=== PATIENT | male | born 1930 | race Caucasian/White ===

== ENCOUNTER 2017-01-24 09:11 | Observation (INO) | payer OTHER ==
[~2017-01-24] VITALS: Ht 182.9 cm; Wt 106.1 kg
[2017-01-24 09:44] LABS: HEMOGLOBIN 12.7 gm/dl (14.0-17.5); RED BLOOD COUNT 4.56 M/UL (4.20-5.50); WHITE BLOOD COUNT 8.2 K/UL (4.5-11.0)
[2017-01-24 10:02] LABS: BUN/CREATININE RATIO 17 (0-10)
[2017-01-24] MEDS ORDERED: VENTOLIN HFA 66.7 GM INH (20:53)
[2017-01-24] MEDS ORDERED: AZOR 10-20 MG1 EACH PO (20:55)
[2017-01-24] MEDS ORDERED: TENORMIN 50 MG50 MG PO (20:56)
[2017-01-24] MEDS ORDERED: LEVOTHYROXINE100 MCG PO (20:57)
[2017-01-24] MEDS ORDERED: LISINOPRIL20 MG PO (20:58)
[2017-01-24] MEDS ORDERED: SYMBICORT 80-10.2 GM INH (21:03)
[2017-01-24] MEDS ORDERED: DALIRESP 500500 MCG PO (21:05)
[2017-01-24] MEDS ORDERED: ELIQUIS 2.5 MG2.5 MG PO (21:05)
[2017-01-24] MEDS ORDERED: GLUCOTROL5 MG PO ×2 (21:06→21:07)
[2017-01-24] MEDS ORDERED: IPRAT-ALBUT 0.5-3 ML NEB (21:08)
[2017-01-24] MEDS ORDERED: ALDACTONE 25MG25 MG PO (21:09)
[2017-01-24] MEDS ORDERED: FLOMAX 0.4 MG0.4 MG PO (21:11)
[2017-01-24] MEDS ORDERED: ASPIR-LOW81 MG PO (21:11)
[2017-01-24] MEDS ORDERED: LIPITOR TAB 2020 MG PO (21:12)
[2017-01-24] MEDS ORDERED: ZANTAC150 MG PO (21:13)
[2017-01-27] MEDS ORDERED: COREG 12.5MG12.5 MG PO (10:21)
[2017-01-27] MEDS ORDERED: RANEXA500 MG PO (10:23)
== END 2017-01-27 11:28 | disposition home or self-care (01) ==
LOC: ER1 09:11 → PROG CARE 11:05 → ZEROF 11:05 → PROG CARE 20:45
PROVIDERS: Emergency Medicine; Internal Medicine Nephrology; ADMIT Emergency Medicine
DX: I50.9 Heart failure, unspecified (principal); J96.01 Acute respiratory failure with hypoxia; J44.9 Chronic obstructive pulmonary disease, unspecified; I25.10 Atherosclerotic heart disease of native coronary artery without angina pectoris; I48.2 Chronic atrial fibrillation; E11.9 Type 2 diabetes mellitus without complications; I10 Essential (primary) hypertension; G47.30 Sleep apnea, unspecified; I65.29 Occlusion and stenosis of unspecified carotid artery; E78.5 Hyperlipidemia, unspecified; E03.9 Hypothyroidism, unspecified; N40.0 Benign prostatic hyperplasia without lower urinary tract symptoms; I73.9 Peripheral vascular disease, unspecified; N18.3 Chronic kidney disease, stage 3 (moderate); I47.2 Ventricular tachycardia; Z90.5 Acquired absence of kidney; Z87.891 Personal history of nicotine dependence; Z90.49 Acquired absence of other specified parts of digestive tract; Z99.81 Dependence on supplemental oxygen; Z95.1 Presence of aortocoronary bypass graft; Z87.19 Personal history of other diseases of the digestive system; Z79.01 Long term (current) use of anticoagulants; Z79.82 Long term (current) use of aspirin; Z79.899 Other long term (current) drug therapy; Z85.53 Personal history of malignant neoplasm of renal pelvis
CPT/HCPCS: ECHO; 36415; 36600; 71010; 78452; 80048; 80053; 82550; 82553; 82803; 82962; 83605; 83874; 83880; 84484; 85025; 85610; 85730; 87040; 93005; 93017; 93306; 94640; 94660; 94664; 96374; 96375; 96376; 99285; A9502; G0378; J1940; J2785; J2930; Q0177; Q9965

== ENCOUNTER → 2017-02-02 | Outpatient (CLI) | payer OTHER ==
[~2017-02-02] MED LIST: ALDACTONE 25MG25 MG PO; ASPIR-LOW81 MG PO; AZOR 10-20 MG1 EACH PO; COREG 12.5MG12.5 MG PO; DALIRESP 500500 MCG PO; ELIQUIS 2.5 MG2.5 MG PO; FLOMAX 0.4 MG0.4 MG PO; GLUCOTROL5 MG PO; IPRAT-ALBUT 0.5-3 ML NEB; LEVOTHYROXINE100 MCG PO; LIPITOR TAB 2020 MG PO; LISINOPRIL20 MG PO; RANEXA500 MG PO; SYMBICORT 80-10.2 GM INH; TENORMIN 50 MG50 MG PO; VENTOLIN HFA 66.7 GM INH; ZANTAC150 MG PO
== END ==
LOC: LAB 11:42
PROVIDERS: Internal Medicine Nephrology
DX: I50.9 Heart failure, unspecified (principal); R60.0 Localized edema
CPT/HCPCS: 36415; 71020; 80048